=== PATIENT | male | born 1980 | race Caucasian/White ===

== ENCOUNTER 2018-01-25 06:44 | Outpatient (CLI) | payer OTHER ==
--- NOTE | 2018-01-25 09:06 | ULT ---
TESTICULAR ULTRASOUND: History: Right testicular pain. History of prior left orchectomy. FINDINGS: Right testicle has a normal sonographic appearance. Color doppler with spectral analysis demonstrates blood flow to the right testicle. Right testicle measures 4.5 x 3.0 x 2.0 cm. A small right epididym al cyst is seen measuring 5 mm. Adjacent to this epididymal cyst is a 1.0 x 0.5 cm solid appearing ci rcumscribed nodular lesion. There are increased vascular structures in the upper right scrotum suggesting vericocele. No evidence of hydrocele. IMPRESSION: 1. An oval shaped hypoechoic solid appearing nodule involving the head of the right epididymis. 2. Adjacent small epididymal cyst. 3. Evidence of vericocele. 4. Right testicle appears unremarkable. POS: ROBBIE
== END 2018-01-25 06:45 | disposition home or self-care (01) ==
LOC: BICULT 06:44
PROVIDERS: ATTEND Family Medicine
DX: N43.40 Spermatocele of epididymis, unspecified (principal); N50.3 Cyst of epididymis; I86.1 Scrotal varices
CPT/HCPCS: 76870; 93976

== ENCOUNTER 2022-12-09 10:35 | Outpatient (CLI) | payer BC | END 2022-12-09 10:36 | disposition home or self-care (01) | LOC: RAD 10:35 | PROVIDERS: ATTEND Family Medicine | DX: M54.2 Cervicalgia (principal); M47.812 Spondylosis without myelopathy or radiculopathy, cervical region | CPT/HCPCS: 70360 ==